=== PATIENT | male | born 1975 | race Caucasian/White ===

== ENCOUNTER 2025-01-08 12:08 | Observation (INO) | payer OTHER ==
[2025-01-08] MEDS ORDERED: dilTIAZem HCL 125 MG/25 ML - 25 ML VIAL ONE ×2 (12:24→12:55)
[2025-01-08 12:41] LABS: ABSOLUTE IMMATURE GRANULOCYTES 0.04 x10^3/uL (0.0-0.031); BASOPHILS # 0.07 x10^3/uL (0.01-0.08); EOSINOPHIL % 1.4 % (0.8-7.0); EOSINOPHILS # 0.17 x10^3/uL (0.04-0.54); MCHC 33.9 g/dl (32.3-36.5); MEAN CELL VOLUME 88.0 fl (79.0-92.2); MEAN PLT VOLUME 9.1 fl (9.4-12.4); MONOCYTE # 0.85 x10^3/uL (0.30-0.82); MONOCYTE % 7.2 % (5.3-12.2); RDW 12.4 % (12.1-15.9)
[2025-01-08 12:46] VITALS: BMI 29.2
[2025-01-08 12:48] LABS: INR 0.96 (0.83-1.09); PROTHROMBIN TIME (PATIENT) 10.7 SEC (9.7-13.0)
[2025-01-08 12:51] LABS: ACTIVATED PTT 36.3 SECONDS (25.2-36.5)
[2025-01-08] MEDS: dilTIAZem HCL 50 MG/10 ML - 10 ML VIAL IVPUSH ONE ×2 (12:54→12:58)
[2025-01-08] MEDS: SODIUM CHLORIDE 0.9% 500 ML INFUS.BAG IV ONE ×2 (13:10→14:39)
[2025-01-08 13:13] LABS: ALK PHOS 73.0 U/L (45-117); CO2 28.0 mmol/L (21-32); CREATININE 1.0 mg/dl (0.6-1.3); GLUCOSE,RANDOM 133.0 mg/dl (74-106); SGOT/AST 21.0 U/L (15-37); SGPT/ALT 27.0 U/L (7-52); TOT PROT 7.8 g/dl (6.4-8.2)
[2025-01-08 14:20] VITALS: RESP 18
[2025-01-08 14:35] LABS: HIV INTERPRETATION NEGATIVE (NEGATIVE)
[2025-01-08 14:36] LABS: HCV DIAGNOSTIC IN-HOUSE W/RFLX NON-REACTIVE (NONREACTIVE)
[2025-01-08] MEDS: dilTIAZem HCL 25 MG/5 ML - 5 ML VIAL IVPUSH PRN (23:21)
[2025-01-09] MEDS: ASPIRIN COATED 81 MG TABLET.EC PO SCH (09:11)
[2025-01-09] MEDS: ENOXAPARIN NA (PORCINE) 40 MG/0.4 ML DISP.SYRIN SQ SCH (09:11)
[2025-01-09] MEDS: METOPROLOL TARTRATE 50 MG TABLET (FP) PO SCH (09:11)
[2025-01-09 09:41] LABS: ABSOLUTE IMMATURE GRANULOCYTES 0.07 x10^3/uL (0.0-0.031); BASOPHILS # 0.06 x10^3/uL (0.01-0.08); EOSINOPHIL % 2.5 % (0.8-7.0); EOSINOPHILS # 0.22 x10^3/uL (0.04-0.54); MCHC 33.7 g/dl (32.3-36.5); MEAN CELL VOLUME 89.4 fl (79.0-92.2); MEAN PLT VOLUME 9.3 fl (9.4-12.4); MONOCYTE # 0.80 x10^3/uL (0.30-0.82); MONOCYTE % 9.1 % (5.3-12.2); RDW 12.8 % (12.1-15.9)
[2025-01-09 09:49] LABS: INR 1.1 (0.83-1.09); PROTHROMBIN TIME (PATIENT) 12.1 SEC (9.7-13.0)
[2025-01-09 10:17] LABS: GLUCOSE,RANDOM 89.0 mg/dL (74-106)
[2025-01-09 10:18] LABS: TOT PROT 6.6 g/dl (6.4-8.2)
[2025-01-09 10:19] LABS: CO2 23.0 mmol/L (21-32)
[2025-01-09 10:21] LABS: ALK PHOS 65.0 U/L (40-150)
[2025-01-09 10:23] LABS: SGOT/AST 24.0 U/L (5-34); SGPT/ALT 27.0 U/L (0-55)
[2025-01-09 10:24] LABS: CREATININE 0.87 mg/dL (0.55-1.3)
[2025-01-09 10:30] LABS: N-TERMINAL BNP 426.1 pg/mL (0-299.9)
[2025-01-09 11:17] VITALS: PULSE 83
[2025-01-09 15:42] VITALS: BP 117/83; TEMP 98.4
[2025-01-09 17:42] LABS: LDL CHOLESTEROL (ONLY SJRH) 215.0 mg/dL (5-100)
== END 2025-01-09 17:47 | disposition home or self-care (01) ==
LOC: FER 12:08 → J4S 16:38 → INTOOBSV 16:38
PROVIDERS: ADMIT Internal Medicine; ATTEND Internal Medicine
PROC: 3E0337Z Introduction of Electrolytic and Water Balance Substance into Peripheral Vein, Percutaneous Approach (ICD-10-PCS; principal; 2025-01-08)
DX: I48.91 Unspecified atrial fibrillation (principal); R00.2 Palpitations; R53.1 Weakness; R06.02 Shortness of breath; R42 Dizziness and giddiness
CPT/HCPCS: 36415; 80053; 80061; 83036; 83735; 83880; 84436; 84443; 84479; 84484; 85025; 85610; 85730; 86803; 87389; 93005; 93010; 93306-TC; 93351; 99285-25; G0378